=== PATIENT | female | born 1965 | race Caucasian/White ===

== ENCOUNTER → 2018-02-04 | Outpatient (CLI) | payer OTHER ==
[~2018-02-04] MED LIST: COZAAR 25MG TAB25 MG; ERYTHROMYCIN E3.5 G1 OPHTHALMIC; GLUMETZA500; HUMALOG PE100 UNIT/1; LO LOESTRIN FE1 EACH; NIASPAN 500 MG500 M1; SIMVASTATIN10 MG; [UNRECOGNIZED DRUG - OTHER]; [UNRECOGNIZED DRUG - OTHER]
== END ==
LOC: M.ULTRA 10:28
DX: M79.89 Other specified soft tissue disorders (principal); M79.662 Pain in left lower leg; E11.9 Type 2 diabetes mellitus without complications; I10 Essential (primary) hypertension; E78.00 Pure hypercholesterolemia, unspecified